=== PATIENT | female | born 1955 | race Caucasian/White ===

== ENCOUNTER 2021-09-30 08:35 | Outpatient (CLI) | payer MEDICARE ==
[2021-09-30] MEDS ORDERED: Magnevist 469MG/ML 20 ML VIAL ONE (15:45)
== END 2021-09-30 08:36 | disposition home or self-care (01) ==
LOC: CSHMRI 08:35
PROVIDERS: ATTEND Orthopaedic Surgery Hand Surgery
DX: M65.4 Radial styloid tenosynovitis [de Quervain] (principal); M65.342 Trigger finger, left ring finger; M25.831 Other specified joint disorders, right wrist; M77.11 Lateral epicondylitis, right elbow; S63.591A Other specified sprain of right wrist, initial encounter; M89.8X4 Other specified disorders of bone, hand; M67.431 Ganglion, right wrist
CPT/HCPCS: A9579

== ENCOUNTER 2022-04-27 14:22 | Outpatient (CLI) | payer MEDICARE | END 2022-04-27 14:23 | disposition home or self-care (01) | LOC: CSHMRI 14:22 | PROVIDERS: ATTEND Orthopaedic Surgery Hand Surgery | DX: D16.01 Benign neoplasm of scapula and long bones of right upper limb (principal); R93.6 Abnormal findings on diagnostic imaging of limbs | CPT/HCPCS: 82565 ==